=== PATIENT | female | born 1945 | race Caucasian/White ===

== ENCOUNTER 2022-02-10 04:14 | Emergency (ER) | payer MEDICARE, OTHER ==
[2022-02-10] MEDS ORDERED: hydrALAZINE 20 MG/ML VIAL ONE (04:43)
[2022-02-10] MEDS ORDERED: Morphine 4 MG/ML VIAL ONE (04:45)
[2022-02-10] MEDS ORDERED: Ondansetron PF 4 MG/2 ML Vial ONE ×2 (04:48→06:05)
[2022-02-10 04:49] LABS: #Basophils 0.1 thou/uL (0.0-0.2); #Eosinphils 0.1 thou/uL (0.0-0.7); #Lymphocytes 2.8 thou/uL (1.20-3.40); #Monocytes 0.6 thou/uL (0.11-0.59); #Neutrophils 4.1 thou/uL (1.40-6.50); %Basophils 0.9 % (0.0-1.0); %Lymphocytes 36.5 % (21.0-51.0); %Neutrophils 53.6 % (42.0-75.0); Mean Corpuscular Hemoglobin 32.1 pg (27.0-31.0); Mean Corpuscular Volume 91.9 fl (78.0-98.0); Mean Platelet Volume 5.2 fL (7.4-10.4); Platelet Count 370 thou/uL (130-400); RBC Distribution Width 12.1 % (11.5-14.5); Red Blood Cell (RBC) Count 4.66 mill/uL (4.20-5.40); White Blood Cell (WBC) Count 7.7 thou/uL (4.8-10.8)
[2022-02-10 05:03] LABS: PTT 26.6 sec (22.9-36.1); Prothrombin Time 12.9 sec (12.0-14.7)
[2022-02-10 05:13] LABS: ALT (SGPT) 20 U/L (8-55); AST (SGOT) 16 U/L (5-34); Albumin 4.2 g/dL (3.4-4.8); Alkaline Phosphatase 60 U/L (40-110); Anion Gap 21 mmol/L (10-20); BUN (Urea Nitrogen) 26 mg/dL (9.8-20.1); Bilirubin, Total 0.5 mg/dL (0.2-1.2); Calc. Creatinine Clearance 0 mL/min (70-130); Calcium 9.4 mg/dL (7.8-10.44); Carbon Dioxide 17 mmol/L (23-31); Chloride 100 mmol/L (98-107); Estimated GFR 73; Glucose 272 mg/dL (83-110); Lipase 71 U/L (8-78); Potassium 4.8 mmol/L (3.5-5.1); Protein, Total 7.2 g/dL (5.8-8.1); Sodium 133 mmol/L (136-145)
[2022-02-10 05:17] LABS: Bilirubin Negative (Negative); Blood, Urine Trace (Negative); Clarity Clear (Clear); Glucose, Urine (Dipstick) 250 mg/dL (Negative); Ketone, Urine Negative (Negative); Leukocyte Small (Negative); Nitrite Negative (Negative); Protein, Urine (Dipstick) 30 mg/dL (Neg-Trace); Urobilinogen 0.2 mg/dL (Less than 2)
[2022-02-10 05:25] LABS: Bacteria/HPF Rare-Few HPF (None Seen); RBC/HPF 0-3 HPF (0-3); Squamous Epithelial 0-3 HPF (0-3)
[2022-02-10 05:26] LABS: Cocaine Metabolite Screen Not Detected (NotDetected); Methamphetamine Not Detected (NotDetected); Phencyclidine (PCP) Not Detected (NotDetected); THC/Cannabinoid Screen Not Detected (NotDetected)
[2022-02-10 05:27] LABS: Amphetamine Not Detected (NotDetected); Barbiturates Screen Not Detected (NotDetected); Benzodiazepine Screen Not Detected (NotDetected); Medtox Control Line Valid? VALID (VALID); Methadone Not Detected (NotDetected); Opiate Screen Detected (NotDetected); Oxycodone Screen Not Detected (NotDetected); Tricyclic Screen Not Detected (NotDetected)
[2022-02-10] MEDS ORDERED: Sodium Chloride 0.9% 1,000 ML ONE (05:36)
[2022-02-10] MEDS ORDERED: Sodium Chloride 0.9% 100 ML ONE (05:53)
[2022-02-10] MEDS ORDERED: cefTRIAXone\\ROCEPHIN 1 GM VIAL ONE (05:53)
[2022-02-10] MEDS ORDERED: Aspirin 325 MG TAB ONE (05:53)
[2022-02-10] MEDS ORDERED: Sodium Chloride 0.9% 100 ML BAG ONE (09:01)
[2022-02-10] MEDS ORDERED: Iopamidol 370 76% 125 ML VIAL FS ONE (09:23)
== END 2022-02-10 07:24 | disposition short-term general hospital (02) ==
LOC: MADERS 04:14
DX: R00.1 Bradycardia, unspecified (principal); I48.92 Unspecified atrial flutter; R77.8 Other specified abnormalities of plasma proteins; N39.0 Urinary tract infection, site not specified; R07.89 Other chest pain; I10 Essential (primary) hypertension; E11.9 Type 2 diabetes mellitus without complications; Z79.4 Long term (current) use of insulin; Z79.01 Long term (current) use of anticoagulants; Z79.84 Long term (current) use of oral hypoglycemic drugs; Z79.899 Other long term (current) drug therapy
CPT/HCPCS: 71275; 74177; 80053; 80306; 81003; 81015; 82553; 83690; 83880; 84443; 84484; 85025; 85610; 85730; 93005; 96365; 96375; 96376; J0360; J0696; J2270; J2405; J3490; J7050; Q9967